=== PATIENT | male | born 1985 | race African-American/Black ===

== ENCOUNTER 2016-08-12 14:03 | Emergency (ER) | payer SELFPAY ==
[~2016-08-12] VITALS: Ht 177.8 cm; Wt 85.7 kg
[~2016-08-12 14:03] MED LIST: ALBUTEROL SULF8.5 GM INH; AZITHROMYCIN250 MG ORAL; IBUPROFEN800 MG ORAL; NKM; PROMETHAZINE-D118 ML ORAL; RANITIDINE HCL150 MG ORAL; ZOFRAN ODT4 MG ORAL
[2016-08-12 14:22] VITALS: BP 126/65
--- NOTE | 2016-08-12 14:34 | Emergency Room Report ---
History of Present Illness General Chief Complaint: Fever Source: Patient Present Illness HPI The patient is a 31-year-old male presenting for subjective fevers and left lower lip swelling. He states the symptoms have been on-and-off for the past 2 weeks. He states that he tried to pop the bump on the lower lip and noticed a white discharge with bleeding. He states pain is now a 10 out of 10 dull ache and does not radiate. He denies injury to this area in the past. He denies any other symptoms including nausea, vomiting, sore throat, cough, ear pain, neck pain, rash Allergies: Coded Allergies: No Known Allergies (Unverified , 07/04/12) Patient History Past Medical History: see triage record Pertinent Family History: none Reviewed Nursing Documentation: PMH: Agreed, PSxH: Agreed Nursing Documentation-PMH Past Medical History: No Stated History Review of Systems All Other Systems: negative except mentioned in HPI Physical Exam Vital Signs Date Time Temp Pulse Resp B/P Pulse Ox O2 Delivery O2 Flow Rate FiO2 08/12/16 14:11 98.1 90 16 126/65 99 Room Air Sp02 EP Interpretation: reviewed, normal General Appearance: no apparent distress, alert, GCS 15, non-toxic Head: normocephalic, atraumatic Eyes: bilateral eye PERRL, bilateral eye normal inspection ENT: hearing grossly normal, normal pharynx, no angioedema, normal voice, TMs + canals normal, uvula midline, other - L lower lip has 2cm tender erythematous nodule of the internal lip. Neurologic: alert, oriented x3, responsive, motor strength/tone normal, sensory intact, speech normal Psychiatric: judgement/insight normal, memory normal, mood/affect normal, no suicidal/homicidal ideation Skin: normal color, no rash, warm/dry, well hydrated Lymphatic: no adenopathy Medical Decision Making PA Attestation Dr. Fox is my supervising physician. Patient management was discussed with my supervising physician Diagnostic Impression: Primary Impression: Infection of lip ER Course The patient is a 31-year-old male presenting for subjective fevers and left lower lip swelling. Differential diagnoses considered but not limited to: abscess, cellulitis, impetigo, PE: vitals WNL. NAD L lower lip has 2cm tender erythematous nodule of the internal lip. indurated. no bleeding. Otherwise exam unremarkable The patient is given a prescription for clindamycin 300mg TIDx7 days and will followup with PMD. ER precautions given Chest X-Ray Diagnostic Results Chest X-Ray Ordered: No Last Vital Signs Date Time Temp Pulse Resp B/P Pulse Ox O2 Delivery O2 Flow Rate FiO2 08/12/16 14:22 98.1 16 126/65 99 Room Air 08/12/16 14:11 90 Status: improved Disposition: HOME, SELF-CARE Condition: Improved Scripts Clindamycin HCl (Clindamycin HCl) 300 Mg Capsule 150 MG ORAL TID, #21 CAP Prov: ARPIT MURGUIA 08/12/16 ARPIT MURGUIA Aug 12, 2016 14:34
[2016-08-12] MEDS ORDERED: CLEOCIN150 MG ORAL (14:36)
[2016-08-12 14:43] VITALS: BP 126/65
== END 2016-08-12 14:43 | disposition home or self-care (01) ==
LOC: EMR 14:32
DX: L08.89 Other specified local infections of the skin and subcutaneous tissue (principal); R22.9 Localized swelling, mass and lump, unspecified; R50.9 Fever, unspecified
CPT/HCPCS: 99283

== ENCOUNTER 2016-08-19 06:35 | Emergency (ER) | payer SELFPAY ==
[~2016-08-19] VITALS: Ht 177.8 cm; Wt 86.2 kg
[~2016-08-19 06:35] MED LIST changes: +CLEOCIN150 MG ORAL
[2016-08-19] MEDS ORDERED: Lidocaine 1% MPF 10mg/ml 5ml INJ ONE (07:15)
--- NOTE | 2016-08-19 07:49 | Emergency Room Report ---
History of Present Illness General Chief Complaint: General Complaint Source: Patient Present Illness HPI This patient states that he developed a bump on his lower lip about a week ago. He was seen here and put on antibiotics. He states that he didn't have improvement despite still being on antibiotics. He states that yesterday he ate some almonds and noted that the lip became significantly larger. He denies rash or itching. He denies difficulty breathing or any, or throat symptoms. He denies fever or chills. He has no other complaints. Allergies: Coded Allergies: No Known Allergies (Unverified , 07/04/12) Patient History Past Medical History: none Social History: Denies: alcohol use, drug use, smoking Reviewed Nursing Documentation: PMH: Agreed, PSxH: Agreed Nursing Documentation-PMH Past Medical History: No Stated History Review of Systems All Other Systems: negative except mentioned in HPI Physical Exam Vital Signs Date Time Temp Pulse Resp B/P Pulse Ox O2 Delivery O2 Flow Rate FiO2 08/19/16 06:40 97.5 69 16 129/87 99 Room Air Sp02 EP Interpretation: reviewed, normal General Appearance: no apparent distress, alert, GCS 15, non-toxic Head: normocephalic, atraumatic Eyes: bilateral eye PERRL, bilateral eye normal inspection ENT: hearing grossly normal, normal pharynx, no angioedema, normal voice, uvula midline, other - L. lower lip with swelling and a dime sized area of fluctuance within the lip. Localized to L. lower lip. Neck: full range of motion, supple/symm/no masses Respiratory: no respiratory distress, no retraction, no accessory muscle use, speaking full sentences Rectal: deferred Musculoskeletal: gait/station normal, normal range of motion Neurologic: alert, oriented x3, responsive, motor strength/tone normal, sensory intact, speech normal Psychiatric: judgement/insight normal, memory normal, mood/affect normal, no suicidal/homicidal ideation Skin: normal color, warm/dry, well hydrated, other - See HEENT Procedures Incision and Drainage Incision and Drainage : Consent: Verbal Site: L. Lower lip Blade Size: 11 I & D Procedure: betadine prep, gauze wick placed Wound Location: other - Left Lower lip nickel sized area Wound Length (cm): 2 - mm Patient Tolerated: Well Complications: None Progress I offered this patient anesthesia with a local lidocaine. However, the patient states he would just like me to make the incision without anesthesia. An 11 blade was used to puncture the area of maximal fluctuance and a large amount of purulent discharge was obtained. A quarter inch ribbon gauze was inserted into the wound. There were no complications. Medical Decision Making Diagnostic Impression: Primary Impression: Lip abscess ER Course This patient presents with a lower lip abscess. It only involves the lip. There is no extension into the facial tissue. I did do a simple incision and drainage with excellent return of purulent discharge. The wound was packed. The patient is on clindamycin I will go ahead and extended course of antibiotics. The patient was given close return precautions and followup instructions. There are no systemic symptoms. The patient tolerated the procedure without complication or incident. Last Vital Signs Date Time Temp Pulse Resp B/P Pulse Ox O2 Delivery O2 Flow Rate FiO2 08/19/16 06:40 97.5 69 16 129/87 99 Room Air Disposition: HOME, SELF-CARE Condition: Improved Referrals: NOT CHOSEN RENETTA/,REFERRING (PCP) OLGE ORTEGA D.O. Aug 19, 2016 07:49
[2016-08-19] MEDS ORDERED: CLINDAMYCIN HC300 MG ORAL (09:13)
[2016-08-19 09:21] VITALS: BP 130/89
== END 2016-08-19 09:24 | disposition home or self-care (01) ==
LOC: EMR 07:05
DX: K13.0 Diseases of lips (principal)
CPT/HCPCS: 10060

== ENCOUNTER 2016-08-19 14:46 | Emergency (ER) | payer SELFPAY ==
[~2016-08-19] VITALS: Ht 177.8 cm; Wt 86.2 kg
[~2016-08-19 14:46] MED LIST changes: +CLINDAMYCIN HC300 MG ORAL
--- NOTE | 2016-08-19 15:30 | Emergency Room Report ---
History of Present Illness General Chief Complaint: Wound Recheck/Suture Removal Source: Patient Present Illness HPI [id number] came back to ED after lip packing fell out after I&D and packing this morning of left lower lip abscess. Patient not sure how it came out, possibly after drinking water. Didnt fill Rx yet. Allergies: Coded Allergies: No Known Allergies (Unverified , 07/04/12) Patient History Past Medical History: none Past Surgical History: none Pertinent Family History: none Social History: Denies: alcohol use, drug use, smoking Immunizations: UTD Reviewed Nursing Documentation: PMH: Agreed, PSxH: Agreed Nursing Documentation-PMH Past Medical History: No Stated History Review of Systems All Other Systems: negative except mentioned in HPI Physical Exam Vital Signs Date Time Temp Pulse Resp B/P Pulse Ox O2 Delivery O2 Flow Rate FiO2 08/19/16 15:01 98.2 89 22 128/79 95 Room Air Sp02 EP Interpretation: reviewed, normal General Appearance: normal inspection, well appearing, no apparent distress, alert Head: normocephalic, atraumatic Eyes: bilateral eye EOMI, bilateral eye PERRL ENT: normal ENT inspection, hearing grossly normal, normal voice, other - Left lower lip-1cm incision seen. No packing seen. Neck: normal inspection, full range of motion, supple, no bony tend Respiratory: normal inspection, lungs clear, normal breath sounds, no respiratory distress, no retraction, no wheezing Gastrointestinal: normal inspection, normal bowel sounds, non tender, soft, no guarding, no hernia Genitourinary: no CVA tenderness Musculoskeletal: normal inspection, back normal, normal range of motion, Jocelynn' s Sign negative Neurologic: normal inspection, alert, oriented x3, responsive, speech normal Psychiatric: normal inspection, judgement/insight normal, mood/affect normal Skin: normal inspection, normal color, no rash Procedures Incision and Drainage Incision and Drainage : Consent: Verbal I & D Procedure: betadine prep Wound Location: face Wound's Depth, Shape: superficial Wound Explored: clean Splint Applied?: No Sling Applied?: No Patient Tolerated: Well Complications: None Progress 3cm packing replaced into I&D wound to lower left lip Medical Decision Making Diagnostic Impression: Primary Impression: Encounter for wound re-check ER Course packing replaced Encouraged patient to fill Rx for Abx Keep packing in as long as possible, preferably 2+ days Remove himself or return to ED for removal Last Vital Signs Date Time Temp Pulse Resp B/P Pulse Ox O2 Delivery O2 Flow Rate FiO2 08/19/16 15:01 98.2 89 22 128/79 95 Room Air Status: improved Disposition: HOME, SELF-CARE Condition: Improved Patient Instructions: Wound Check Additional Instructions: - Keep packing in as long as possible - Take ALL the antibiotics BRADEN STOCKTON M.D. Aug 19, 2016 15:30
[2016-08-19 15:31] VITALS: BP 128/79
== END 2016-08-19 16:00 | disposition home or self-care (01) ==
LOC: EMR 15:48
DX: L02.01 Cutaneous abscess of face (principal); Z48.01 Encounter for change or removal of surgical wound dressing
CPT/HCPCS: 10060

== ENCOUNTER 2016-11-26 14:06 | Emergency (ER) | payer SELFPAY ==
[~2016-11-26] VITALS: Ht 180.3 cm; Wt 83.9 kg
--- NOTE | 2016-11-26 14:49 | Emergency Room Report ---
History of Present Illness General Chief Complaint: General Complaint Source: Patient (Tegan Lee) Present Illness HPI Patient is a 31-year-old male with no significant past medical history who presents with complaint of lip swelling that began yesterday. He states he's had this in the past and they "cut into it" and it resolved. He denies any pain , fever, chills or associated symptoms. (Tegan Lee) Allergies: Coded Allergies: No Known Allergies (Unverified , 07/04/12) Patient History Reviewed Nursing Documentation: PMH: Agreed, PSxH: Agreed (Tegan Lee) Nursing Documentation-PMH Past Medical History: No Stated History (Tegan Lee) Review of Systems ENT: Reports: other - lip swelling All Other Systems: negative except mentioned in HPI (Tegan Lee) Physical Exam Vital Signs Date Time Temp Pulse Resp B/P (MAP) Pulse Ox O2 Delivery O2 Flow Rate FiO2 11/26/16 14:30 98.2 84 16 137/74 98 Room Air Sp02 EP Interpretation: reviewed, normal General Appearance: no apparent distress, alert, GCS 15, non-toxic Head: normocephalic, atraumatic Eyes: bilateral eye normal inspection, bilateral eye PERRL ENT: hearing grossly normal, normal pharynx, no angioedema, normal voice, other - 1cm non tender fluid filled mass in the lower lip, no evidence of infection Neck: full range of motion, supple/symm/no masses Respiratory: chest non-tender, lungs clear, normal breath sounds, speaking full sentences Cardiovascular #1: regular rate, rhythm, no edema Cardiovascular #2: 2+ carotid (R), 2+ carotid (L), 2+ radial (R), 2+ radial (L) , 2+ dorsalis pedis (R), 2+ dorsalis pedis (L) Gastrointestinal: normal bowel sounds, non tender, soft, non-distended, no guarding, no rebound Rectal: deferred Genitourinary: normal inspection, no CVA tenderness Musculoskeletal: back normal, gait/station normal, normal range of motion, non- tender, calf tenderness Neurologic: alert, oriented x3, responsive, motor strength/tone normal, sensory intact, speech normal Psychiatric: judgement/insight normal, memory normal, mood/affect normal, no suicidal/homicidal ideation Reflexes: 3+ bicep (R), 3+ bicep (L), 3+ tricep (R), 3+ tricep (L), 3+ knee (R) , 3+ knee (L) Skin: normal color, no rash, warm/dry, well hydrated Lymphatic: no adenopathy (Tegan Lee P.A.) Procedures Incision and Drainage Incision and Drainage : Consent: Verbal Blade Size: 18 gague needle aspiration Wound Explored: clean Patient Tolerated: Well Complications: None (Tegan Lee P.A.) Medical Decision Making PA Attestation supervising physician is (Tegan Lee P.Vince) Diagnostic Impression: Primary Impression: Lip cyst ER Course And I have a fluid collection in his lower lip consistent with a cyst. No evidence of infection and no tenderness to palpation. Aspirated with an 18- gauge needle, patient tolerated procedure well. Patient is instructed to follow up with PCP for referral to [facility] for surgical removal of the cyst. Explained the patient at length and they fluid collections lower lip is not an abscess and there is no indication for incision and drainage at this time. Patient understands and is agreeable with plan. (Tegan Lee P.A.) Last Vital Signs Date Time Temp Pulse Resp B/P (MAP) Pulse Ox O2 Delivery O2 Flow Rate FiO2 11/26/16 14:30 98.2 84 16 137/74 98 Room Air Status: improved (Tegan Lee P.A.) Last Vital Signs Date Time Temp Pulse Resp B/P (MAP) Pulse Ox O2 Delivery O2 Flow Rate FiO2 11/26/16 15:30 98.2 84 16 132/70 98 Room Air Status: unchanged (Alexandr Neville M.D.) Disposition: HOME, SELF-CARE Condition: Stable Tegan Lee.Vince Nov 26, 2016 14:49 Alexandr Neville M.D. Nov 27, 2016 03:40
[2016-11-26 15:30] VITALS: BP 132/70
== END 2016-11-26 15:51 | disposition home or self-care (01) ==
LOC: EMR 15:02
DX: K13.0 Diseases of lips (principal)
CPT/HCPCS: 10060; 99283

== ENCOUNTER 2017-11-21 16:59 | Emergency (ER) | payer OTHER ==
[~2017-11-21] VITALS: Ht 175.3 cm; Wt 88.5 kg
[2017-11-21 17:39] VITALS: BP 155/95
--- NOTE | 2017-11-21 17:41 | Emergency Room Report ---
History of Present Illness General Chief Complaint: Abdominal Pain Source: Patient Present Illness HPI 32-year-old male presents to the emergency department complaining of intermittent 5 out of 10 in severity epigastric abdominal pain 4 months. Patient also reports during episodes he feels as though his abdomen is bloated. Patient denies pain at this time he does not recall any specific triggers for her symptoms. Patient does report he eats spicy foods as well as moderate amount of caffeine. Patient denies radiation of the pain up into the throat. Patient denies symptoms being worse at night denies fevers, chills, nausea, vomiting, recent travel or ill contacts with similar symptoms. Patient denies black tarry stools, blood in the stool or vomiting any blood. Patient reports frequency is approximately 3 times per week. Denies constipation, diarrhea, dysuria, or urinary frequency. Allergies: Coded Allergies: No Known Allergies (Unverified , 07/04/12) Patient History Past Medical History: see triage record Past Surgical History: none Pertinent Family History: none Reviewed Nursing Documentation: PMH: Agreed; PSxH: Agreed Nursing Documentation-PMH Past Medical History: No Stated History Review of Systems All Other Systems: negative except mentioned in HPI Physical Exam Vital Signs Date Time Temp Pulse Resp B/P (MAP) Pulse Ox O2 Delivery O2 Flow Rate FiO2 11/21/17 17:10 98.1 78 20 155/95 98 Room Air 98.1 Sp02 EP Interpretation: reviewed, normal General Appearance: no apparent distress, alert, GCS 15, non-toxic Head: normocephalic, atraumatic ENT: hearing grossly normal, normal voice Neck: full range of motion Respiratory: chest non-tender, lungs clear, normal breath sounds, speaking full sentences Cardiovascular #1: regular rate, rhythm Gastrointestinal: normal bowel sounds, non tender, soft, non-distended, no guarding Genitourinary: normal inspection, no CVA tenderness Musculoskeletal: back normal, gait/station normal, normal range of motion, non- tender Neurologic: alert, oriented x3, responsive, motor strength/tone normal, sensory intact, normal gait, speech normal, grossly normal Psychiatric: judgement/insight normal Skin: normal color, no rash, warm/dry, well hydrated Medical Decision Making PA Attestation Dr. Arrington is my supervising Physician whom patient management has been discussed with. Diagnostic Impression: Primary Impression: Gastritis Qualified Codes: K29.00 - Acute gastritis without bleeding ER Course 32-year-old male presents to the emergency department complaining of intermittent 5 out of 10 in severity epigastric abdominal pain 4 months. Patient also reports during episodes he feels as though his abdomen is bloated. Patient denies pain at this time he does not recall any specific triggers for her symptoms. Patient does report he eats spicy foods as well as moderate amount of caffeine. Patient denies radiation of the pain up into the throat. Patient denies symptoms being worse at night denies fevers, chills, nausea, vomiting, recent travel or ill contacts with similar symptoms. Patient denies black tarry stools, blood in the stool or vomiting any blood. Patient reports frequency is approximately 3 times per week. Denies constipation, diarrhea, dysuria, or urinary frequency. Ddx considered but are not limited to GE, colitis, acute appy, SBO, H.pylori, Gastritis, PNA, pericarditis just to name a few. Vital signs: pt. is afebrile H&PE are most consistent with Gastritis - no evidence to suggest acute abdomen on physical exam. ORDERS: -None required at this time, the dx is clinical. ED INTERVENTIONS: -none required at this time. -I do not identify an emergent condition at this time. With current presentation , pt. is stable for close outpatient follow up and conservative treatment. D/ w pt. to return promptly to ED with worsening or new symptoms.- Pt. verbalizes' understanding and agreement with proposed treatment plan.proposed treatment plan. DISCHARGE: At this time pt. is stable for d/c to home. Will provide printed patient care instructions, and any necessary prescriptions. Care plan and follow up instructions have been discussed with the patient prior to discharge. Last Vital Signs Date Time Temp Pulse Resp B/P (MAP) Pulse Ox O2 Delivery O2 Flow Rate FiO2 11/21/17 17:10 98.1 78 20 155/95 98 Room Air 98.1 Disposition: HOME, SELF-CARE Condition: Stable Scripts Lidocaine HCl 2% Viscous (Lidocaine HCl 2% Viscous) 100 Ml Solution 5 ML ORAL QID, #100 ML Prov: Rosa Benson 11/21/17 Ranitidine Hcl* (ZANTAC*) 150 Mg Tablet 150 MG ORAL TWICE A DAY, #30 TAB Prov: Rosa Benson 11/21/17 Patient Instructions: Food Choices for Peptic Ulcer Disease, Gastritis, Adult Additional Instructions: Take medications as directed. Follow up with a Primary Care Provider in 3-5 days, even if your symptoms have resolved. Return sooner to ED if new symptoms occur, or current symptoms become worse. - Please note that this Emergency Department Report was dictated using [employer] planning consultant technology software, occasionally this can lead to erroneous entry secondary to interpretation by the dictation equipment. Rosa Benson Nov 21, 2017 17:41
[2017-11-21] MEDS ORDERED: ZANTAC150 MG ORAL (17:43)
[2017-11-21] MEDS ORDERED: LIDOCAINE VISC100 ML ORAL (17:43)
== END 2017-11-21 19:00 | disposition home or self-care (01) ==
LOC: EMR 17:50
DX: K29.70 Gastritis, unspecified, without bleeding (principal)
CPT/HCPCS: 99283

== ENCOUNTER 2018-01-24 11:26 | Emergency (ER) | payer OTHER ==
[~2018-01-24] VITALS: Ht 177.8 cm; Wt 95.3 kg
[~2018-01-24 11:26] MED LIST changes: +LIDOCAINE VISC100 ML ORAL; +ZANTAC150 MG ORAL
[2018-01-24] MEDS ORDERED: NKM (11:34)
[2018-01-24 11:40] VITALS: BP 138/89
[2018-01-24] MEDS ORDERED: Lidocaine 2% Visc 15ml soln ORAL ONE (12:30)
[2018-01-24] MEDS ORDERED: Benzonatate 100mg Perles ORAL ONE (12:30)
[2018-01-24] MEDS ORDERED: SUDAFED PE PRE1 EACH PO (12:38)
[2018-01-24] MEDS ORDERED: FLUTICASONE PRO16 G1 NASAL (12:38)
[2018-01-24] MEDS ORDERED: CLARITIN10 M2 ORAL (12:38)
[2018-01-24] MEDS ORDERED: TESSALON PERLE100 MG ORAL (12:38)
--- NOTE | 2018-01-24 12:38 | Emergency Room Report ---
History of Present Illness General Chief Complaint: Flu Like Symptoms Source: Patient Present Illness HPI 32-year-old male patient presents ER complaining of cough and nasal congestion for the past week. Reports sore throat during this time. Denies chest pain, shortness of breath. Denies fever. Reports has been taking NyQuil and DayQuil for relief of symptoms. Denies history of asthma, heart disease, [place]. Reports history of bronchitis, denies breathing difficulties, denies cough worse at night.. denies vomiting. Denies abdominal pain. Denies neck pain. Denies recent travel. Allergies: Coded Allergies: No Known Allergies (Unverified , 01/24/18) Patient History Past Medical History: see triage record Reviewed Nursing Documentation: PMH: Agreed; PSxH: Agreed Nursing Documentation-PMH Past Medical History: No Stated History Review of Systems All Other Systems: negative except mentioned in HPI Physical Exam Vital Signs Date Time Temp Pulse Resp B/P (MAP) Pulse Ox O2 Delivery O2 Flow Rate FiO2 01/24/18 11:29 98.4 84 18 138/89 97 Room Air Sp02 EP Interpretation: reviewed, normal General Appearance: well appearing, no apparent distress, alert, GCS 15, non- toxic Head: normocephalic, atraumatic Eyes: bilateral eye normal inspection, bilateral eye PERRL ENT: hearing grossly normal, normal pharynx, no angioedema, normal voice, TMs + canals normal, uvula midline, moist mucus membranes, pharyngeal erythema Neck: full range of motion, no meningismus Respiratory: lungs clear, normal breath sounds, no rhonchi, no respiratory distress, no accessory muscle use, no wheezing, speaking full sentences Cardiovascular #1: regular rate, rhythm, no edema Gastrointestinal: non tender, soft, no mass, non-distended, no guarding, no rebound Musculoskeletal: back normal, digits/nails normal, gait/station normal, normal range of motion, non-tender Neurologic: alert, oriented x3, responsive, motor strength/tone normal, sensory intact Psychiatric: mood/affect normal Skin: no rash Lymphatic: no adenopathy Medical Decision Making PA Attestation Dr. Lawrence is my supervising Physician whom patient management has been discussed with. Diagnostic Impression: Primary Impression: Upper respiratory infection ER Course Pt presents to ED c/o cough and congestion. DDX considered but are not limited to influenza, viral URI, pneumonia, strep throat, rhinitis, sinusitis, otitis media, otitis externa. VITAL SIGNS are WNL, patient is afebrile. ER COURSE: Provided with cough medication in the ER. Lungs clear to auscultation, no wheezes, rhonci or rales. patient afebrile. Low suspicion for pneumonia, will not order CXR at this time. no tonsillar exudates, history of cough, no fever, no stridor, uvula midline, low suspicion for peritonsillar abscess. Likely viral etiology of symptoms. no signs of bacterial infection, does not require abx at this time. Symptomatic treatment. drink plenty of fluids. Salt water gargles for sore throat. Followup with PCP for further treatment and/or referral as needed. DISCHARGE: At this time pt is stable for d/c to home. Patient is resting comfortably, in no acute distress, nontoxic appearing. Patient to take medications as instructed Will provide with patient care instructions and any necessary prescriptions. Care plan and follow-up instructions provided. Patient instructed to follow-up with primary care provider in 3 - 5 days. Patient questions asked and answered. Patient reports understanding and agreement to treatment plan. ER precautions given. Patient instructed to return to ER immediately for any new or worsening of symptoms including but not limited to increasing SOB, persistent fever, intractable vomiting. - Please note that this Emergency Department Report was dictated using [employer] systems security developer technology software, occasionally this can lead to erroneous entry secondary to interpretation by the dictation equipment. Last Vital Signs Date Time Temp Pulse Resp B/P (MAP) Pulse Ox O2 Delivery O2 Flow Rate FiO2 01/24/18 11:40 98.4 18 138/89 97 Room Air 01/24/18 11:40 84 Disposition: HOME, SELF-CARE Condition: Stable Scripts Loratadine (CLARITIN) 10 Mg Capsule 10 MG ORAL DAILY, #30 CAP Prov: Darian Diaz.ALa 01/24/18 Fluticasone Propionate* (FLUTICASONE PROPIONATE*) 16 Gm [place].susp 1 SPRAY NASAL TWICE A DAY, #16 GM Prov: Darian Diaz.ALa 01/24/18 D-Methorphan/PE/Acetaminophen (Sudafed PE Pressure+Pain+Cough) 1 Each Tablet 1 EACH PO BID, #24 TAB Prov: Darian Diaz.A. 01/24/18 Benzonatate* (TESSALON SVETLANA*) 100 Mg Capsule 100 MG ORAL THREE TIMES A DAY, #20 PERLE Prov: Darian Diaz 01/24/18 Patient Instructions: Upper Respiratory Infection, Adult, [id number] Additional Instructions: Followup with primary care provider in 3 -5 days. Take medications as directed. Patient questions asked and answered. ER precautions given, patient instructed to return to ER immediately for any new or worsening of symptoms. Darian Diaz Jan 24, 2018 12:38
[2018-01-24 12:53] VITALS: BP 147/65
== END 2018-01-24 12:54 | disposition home or self-care (01) ==
LOC: EMR 12:38
DX: J06.9 Acute upper respiratory infection, unspecified (principal)
CPT/HCPCS: 99282

== ENCOUNTER 2018-02-21 16:33 | Emergency (ER) | payer OTHER ==
[~2018-02-21] VITALS: Ht 175.3 cm; Wt 90.7 kg
[~2018-02-21 16:33] MED LIST changes: +CLARITIN10 M2 ORAL; +FLUTICASONE PRO16 G1 NASAL; +SUDAFED PE PRE1 EACH PO; +TESSALON PERLE100 MG ORAL
[2018-02-21 16:45] VITALS: BP 132/87
[2018-02-21] MEDS ORDERED: Phenazopyridine 200mg tab ORAL ONE (16:45)
[2018-02-21 17:13] LABS: APPEARANCE,URINE CLEAR; BILIRUBIN, URINE NEGATIVE (NEGATIVE); COLOR,URINE PALE YELLOW; GLUCOSE, URINE (UA) NEGATIVE (NEGATIVE); KETONES,URINE NEGATIVE (NEGATIVE); LEUKOCYTE ESTERASE ,URINE 3+ (NEGATIVE); NITRITE,URINE NEGATIVE (NEGATIVE); PH,URINE 8 (4.5-8.0); PROTEIN,URINE NEGATIVE (NEGATIVE); UROBILINOGEN,URINE NORMAL MG/DL (0.0-1.0)
[2018-02-21] MEDS ORDERED: CEPHALEXIN500 MG ORAL (17:53)
[2018-02-21] MEDS ORDERED: PHENAZOPYRIDIN200 MG ORAL (17:53)
--- NOTE | 2018-02-21 17:53 | Emergency Room Report ---
History of Present Illness General Chief Complaint: Male Urogenital Problems Source: Patient Present Illness HPI 32-year-old male presents to the emergency department complaining of 7 out of 10 in severity dysuria times 3 days. Patient denies hematuria, urinary frequency, urgency, abdominal pain or tenderness. Patient denies penile discharge, rash, genital lesions/swollen tender lymph nodes or testicular pain/ swelling. Patient denies recent unprotected intercourse denies history of immune compromise or diabetes. Reports pain only with urination he denies any aggravating or relieving factors otherwise. Pt. denies suspicion if STD. Allergies: Coded Allergies: No Known Allergies (Unverified , 01/24/18) Patient History Past Medical History: see triage record Past Surgical History: none Pertinent Family History: none Reviewed Nursing Documentation: PMH: Agreed; PSxH: Agreed Nursing Documentation-PMH Past Medical History: No Stated History Review of Systems All Other Systems: negative except mentioned in HPI Physical Exam Vital Signs Date Time Temp Pulse Resp B/P (MAP) Pulse Ox O2 Delivery O2 Flow Rate FiO2 02/21/18 16:38 98.4 87 20 135/86 96 Room Air Medical Decision Making PA Attestation Dr. Arrington is my supervising Physician whom patient management has been discussed with. Diagnostic Impression: Primary Impression: UTI (urinary tract infection) Qualified Codes: N30.00 - Acute cystitis without hematuria ER Course 32-year-old male presents to the emergency department complaining of 7 out of 10 in severity dysuria times 3 days. Patient denies hematuria, urinary frequency, urgency, abdominal pain or tenderness. Patient denies penile discharge, rash, genital lesions/swollen tender lymph nodes or testicular pain/ swelling. Patient denies recent unprotected intercourse denies history of immune compromise or diabetes. Reports pain only with urination he denies any aggravating or relieving factors otherwise. Pt. denies suspicion if STD. Ddx considered but are not limited to UTi , Pyelo, STI, Stone, Cystitis, Urethritis/STD Vital signs: are WNL, pt. is afebrile H&PE are most consistent with UTI ORDERS: - UA labs are attached - Some bacteria with leukocytes pt will be treated due to being symptomatic. ED INTERVENTIONS: -Pyridium DISCHARGE: At this time pt. is stable for d/c to home. Will provide printed patient care instructions, and any necessary prescriptions. Care plan and follow up instructions have been discussed with the patient prior to discharge. Labs Test 02/21/18 16:40 Urine Color Pale yellow Urine Appearance Clear Urine pH 8 (4.5-8.0) Urine Specific [place] 1.010 (1.005-1.035) Urine Protein Negative (NEGATIVE) Urine Glucose (UA) Negative (NEGATIVE) Urine Ketones Negative (NEGATIVE) Urine Blood Negative (NEGATIVE) Urine Nitrite Negative (NEGATIVE) Urine Bilirubin Negative (NEGATIVE) Urine Urobilinogen Normal MG/DL (0.0-1.0) Urine Leukocyte Esterase 3+ (NEGATIVE) Urine RBC 0-2 /HPF (0 - 0) Urine WBC 2-4 /HPF (0 - 0) Urine Squamous Epithelial Cells None /LPF (NONE/OCC) Urine Bacteria Few /HPF (NONE) Last Vital Signs Date Time Temp Pulse Resp B/P (MAP) Pulse Ox O2 Delivery O2 Flow Rate FiO2 02/21/18 16:45 98.6 84 18 132/87 98 Room Air Disposition: HOME, SELF-CARE Condition: Stable Scripts Phenazopyridine Hcl* (PYRIDIUM*) 200 Mg Tablet 200 MG ORAL THREE TIMES A DAY for 3 Days, #9 TAB 0 Refills Prov: Rosa Benson 02/21/18 Cephalexin* (KEFLEX*) 500 Mg Capsule 500 MG ORAL EVERY 12 HOURS for 7 Days, #14 CAP 0 Refills Prov: Rosa Benson 02/21/18 Referrals: [facility]REFERR[facility] (PCP) Patient Instructions: Urinary Tract Infection, [id number] Additional Instructions: Take medications as directed. Follow up with a Primary Care Provider in 3-5 days, even if your symptoms have resolved. --Please review list of primary care clinics, if you do not already have a primary care provider Return sooner to ED if new symptoms occur, or current symptoms become worse. Do not drink alcohol, drive, or operate heavy machinery while taking robaxin as this may cause drowsiness. - Please note that this Emergency Department Report was dictated using [employer] and safety director technology software, occasionally this can lead to erroneous entry secondary to interpretation by the dictation equipment. Rosa Benson Feb 21, 2018 17:53
[2018-02-21 17:58] VITALS: BP 128/86
== END 2018-02-21 18:00 | disposition home or self-care (01) ==
LOC: EMR 17:40
DX: N39.0 Urinary tract infection, site not specified (principal)
CPT/HCPCS: 81003; 99283

== ENCOUNTER 2018-04-24 08:27 | Emergency (ER) | payer OTHER ==
[~2018-04-24] VITALS: Ht 177.8 cm; Wt 90.7 kg
[~2018-04-24 08:27] MED LIST changes: +CEPHALEXIN500 MG ORAL; +PHENAZOPYRIDIN200 MG ORAL
[2018-04-24] MEDS ORDERED: NKM (08:34)
[2018-04-24 08:38] VITALS: BP 126/80
--- NOTE | 2018-04-24 08:38 | NUR ---
ED Nurse Note: Pt c/o lower back pain for 2 weeks. Denies trauma to his back.
[2018-04-24] MEDS ORDERED: IBUPROFEN600 MG ORAL (08:47)
--- NOTE | 2018-04-24 08:52 | Emergency Room Report ---
History of Present Illness General Chief Complaint: Back Pain-No Injury Source: Patient Present Illness HPI Patient presents with complaints of lower back pain Reports that off-and-on for the past 2 weeks Denies any chest pain or shortness of breath denies any vomiting or diarrhea denies any fevers or chills Denies any focal weakness however does feel that some of the pain goes into the right buttock and upper thigh area at times Denies any obvious trauma however the patient reports that he does work out Does different workout such as carrying things over his back Denies any other saddle paresthesia or constipation Allergies: Coded Allergies: No Known Allergies (Unverified , 04/24/18) Patient History Past Medical History: see triage record Pertinent Family History: none Reviewed Nursing Documentation: PMH: Agreed; PSxH: Agreed Nursing Documentation-PMH Past Medical History: No Stated History Review of Systems All Other Systems: negative except mentioned in HPI Physical Exam Vital Signs Date Time Temp Pulse Resp B/P (MAP) Pulse Ox O2 Delivery O2 Flow Rate FiO2 04/24/18 08:30 97.5 67 16 125/78 98 Room Air Sp02 EP Interpretation: reviewed, normal General Appearance: well appearing, no apparent distress Head: normocephalic, atraumatic Eyes: bilateral eye PERRL, bilateral eye EOMI ENT: hearing grossly normal, normal pharynx, TMs + canals normal, uvula midline Neck: full range of motion, supple, no meningismus, no bony tend Respiratory: lungs clear, normal breath sounds, no rhonchi, no respiratory distress, no retraction, no accessory muscle use Cardiovascular #1: normal peripheral pulses, regular rate, rhythm, no edema, no gallop, no JVD, no murmur Gastrointestinal: normal bowel sounds, non tender, soft, no mass, no organomegaly, non-distended, no guarding, no hernia, no pulsatile mass, no rebound Genitourinary: no CVA tenderness Musculoskeletal: other - Fairly normal exam patient does have some reproduction of discomfort over the right posterior superior iliac crest region otherwise midline does not show any step-offs sensory is intact Neurologic: oriented x3, responsive, web operations lead III-XII nml as tested, motor strength/ tone normal, sensory intact Psychiatric: mood/affect normal Skin: normal color, no rash, warm/dry, palpation normal Lymphatic: normal inspection, no adenopathy Medical Decision Making Diagnostic Impression: Primary Impression: Back pain ER Course Multiple differentials in consideration including but not limited to neurological neurosurgical, muscle skeletal, Patient has a benign medical evaluation He reports that he had fairly extensive blood work done by his primary physician Dr. Hardy just about a month ago and feels that they were all normal however he has not discussed these findings with his physician Given the lack of any end organ findings or any other emergent indications patient is recommended to follow up closely with his primary physician and will have attempt for initial conservative follow-up Last Vital Signs Date Time Temp Pulse Resp B/P (MAP) Pulse Ox O2 Delivery O2 Flow Rate FiO2 04/24/18 08:38 97.5 68 17 126/80 99 Room Air Status: unchanged Disposition: HOME, SELF-CARE Condition: Stable Scripts Ibuprofen* (MOTRIN*) 600 Mg Tablet 600 MG ORAL Q8H PRN for For Pain, #20 TAB 0 Refills Prov: Shanelle Lawrence DO 04/24/18 Referrals: Christian Hardy MD (PCP) Patient Instructions: Sciatica, Back Pain, Adult Additional Instructions: Patient is provided with the discharge instructions notified to follow up with primary doctor in the next 2-3 days otherwise return to the er with any worsening symptoms. Please note that this report is being documented using [employer] technology. This can lead to erroneous entry secondary to incorrect interpretation by the dictating instrument. Shanelle Lawrence DO Apr 24, 2018 08:52
[2018-04-24 09:06] VITALS: BP 130/75
--- NOTE | 2018-04-24 09:06 | NUR ---
ED Nurse Note: Pt cleared by Health Care Provider for discharge. DC instructions/prescription was given and explained to the pt and verbalized understanding of teachings. All medical devices such as ID band removed. Pt is AAO x4, ambulatory and left with all personal belongings.
== END 2018-04-24 09:06 | disposition home or self-care (01) ==
LOC: EMR 08:45
DX: M54.5 Low back pain (principal)
CPT/HCPCS: 99282

== ENCOUNTER 2018-05-08 10:07 | Emergency (ER) | payer OTHER ==
[~2018-05-08] VITALS: Ht 180.3 cm; Wt 95.3 kg
[~2018-05-08 10:07] MED LIST changes: +IBUPROFEN600 MG ORAL
[2018-05-08 10:26] VITALS: BP 157/93
--- NOTE | 2018-05-08 10:28 | NUR ---
ED Nurse Note: patient walked in by him self from home with steady gait, complaining of chest pain 8/, AAO x 4, skin is dry, intact, warm to touch. VSS at this time. patient was connected to the monitor, will continue to monitor.
--- NOTE | 2018-05-08 10:38 | Emergency Room Report ---
History of Present Illness General Chief Complaint: Pain Source: Patient Present Illness HPI Patient present with complaints of midsternal chest pain Also left axillary Reports that off-and-on for the past 7 days he has felt the discomfort more frequently denies any vomiting There is a component of shortness of breath that he reports as well however nonspecifically correlated with this Patient reports that he was reading online was concern about possible blood clot Denies any pleurisy denies any fevers or chills denies any cough Allergies: Coded Allergies: No Known Allergies (Unverified , 04/24/18) Patient History Past Medical History: see triage record Pertinent Family History: none Reviewed Nursing Documentation: PMH: Agreed; PSxH: Agreed Review of Systems All Other Systems: negative except mentioned in HPI Physical Exam Vital Signs Date Time Temp Pulse Resp B/P (MAP) Pulse Ox O2 Delivery O2 Flow Rate FiO2 05/08/18 10:09 97.9 69 18 133/99 98 Room Air Sp02 EP Interpretation: reviewed, normal General Appearance: well appearing, no apparent distress Head: normocephalic, atraumatic Eyes: bilateral eye PERRL, bilateral eye EOMI ENT: hearing grossly normal, normal pharynx, TMs + canals normal, uvula midline Neck: full range of motion, supple, no meningismus, no bony tend Respiratory: lungs clear, normal breath sounds, no rhonchi, no respiratory distress, no retraction, no accessory muscle use Cardiovascular #1: normal peripheral pulses, regular rate, rhythm, no edema, no gallop, no JVD, no murmur Gastrointestinal: normal bowel sounds, non tender, soft, no mass, no organomegaly, non-distended, no guarding, no hernia, no pulsatile mass, no rebound Genitourinary: no CVA tenderness Musculoskeletal: normal inspection Neurologic: oriented x3, responsive, bed spring maker III-XII nml as tested, motor strength/ tone normal, sensory intact Psychiatric: mood/affect normal Skin: normal color, no rash, warm/dry, palpation normal Lymphatic: normal inspection, no adenopathy Medical Decision Making Diagnostic Impression: Primary Impression: Chest pain ER Course Patient is a fairly complex patient with multiple differential to consideration including but not limited to cardiac cardiopulmonary and vascular emergencies Patient's EKG shows earlier prostration no other acute pathology Blood work also does not show any other acute pathology Patient's chest x-ray was negative remains hemodynamically stable on cardiac monitoring I spoke to the patient's primary physician and patient is requested for close follow-up Labs Test 05/08/18 10:45 White Blood Count 3.6 K/UL (4.8-10.8) Red Blood Count 6.69 M/UL (4.70-6.10) Hemoglobin 17.4 G/DL (14.2-18.0) Hematocrit 52.6 % (42.0-52.0) Mean Corpuscular Volume 79 FL (80-99) Mean Corpuscular Hemoglobin 26.0 PG (27.0-31.0) Mean Corpuscular Hemoglobin Concent 33.0 G/DL (32.0-36.0) Red Cell Distribution Width 11.8 % (11.6-14.8) Platelet Count 251 K/UL (150-450) Mean Platelet Volume 9.3 FL (6.5-10.1) Neutrophils (%) (Auto) 53.3 % (45.0-75.0) Lymphocytes (%) (Auto) 34.9 % (20.0-45.0) Monocytes (%) (Auto) 9.8 % (1.0-10.0) Eosinophils (%) (Auto) 0.6 % (0.0-3.0) Basophils (%) (Auto) 1.4 % (0.0-2.0) Sodium Level 139 MMOL/L (136-145) Potassium Level 4.1 MMOL/L (3.5-5.1) Chloride Level 104 MMOL/L (98-107) Carbon Dioxide Level 27 MMOL/L (21-32) Anion Gap 8 mmol/L (5-15) Blood Urea Nitrogen 14 mg/dL (7-18) Creatinine 1.3 MG/DL (0.55-1.30) Estimat Glomerular Filtration Rate > 60 mL/min (>60) Glucose Level 90 MG/DL (74-106) Calcium Level 9.4 MG/DL (8.5-10.1) Total Bilirubin 0.6 MG/DL (0.2-1.0) Aspartate Amino Transf (AST/SGOT) 23 U/L (15-37) Alanine Aminotransferase (ALT/SGPT) 34 U/L (12-78) Alkaline Phosphatase 74 U/L (46-116) Total Creatine Kinase 176 U/L (26-308) Creatine Kinase MB 1.1 NG/ML (0.0-3.6) Creatine Kinase MB Relative Index 0.6 Troponin I 0.000 ng/mL (0.000-0.056) Pro-B-Type Natriuretic Peptide 21 pg/mL (0-125) Total Protein 7.7 G/DL (6.4-8.2) Albumin 4.2 G/DL (3.4-5.0) Globulin 3.5 g/dL Albumin/Globulin Ratio 1.2 (1.0-2.7) EKG Diagnostic Results Rate: normal Rhythm: NSR ST Segments: no acute changes - Early Repolarization Rhythm Strip Diag. Results EP Interpretation: yes Rate: 60 Rhythm: NSR, no PVC's, no ectopy Chest X-Ray Diagnostic Results Chest X-Ray Diagnostic Results : Chest X-Ray Ordered: Yes # of Views/Limited/Complete: 1 View Indication: Chest Pain EP Interpretation: Yes Interpretation: no consolidation, no effusion, no pneumothorax Impression: No acute disease Electronically Signed by: Shanelle Lawrence DO Last Vital Signs Date Time Temp Pulse Resp B/P (MAP) Pulse Ox O2 Delivery O2 Flow Rate FiO2 05/08/18 10:26 98.0 70 11 157/93 99 Room Air Status: improved Disposition: HOME, SELF-CARE Condition: Improved Referrals: [facility],REFERRING (PCP) Additional Instructions: Patient is provided with the discharge instructions notified to follow up with primary doctor in the next 2-3 days otherwise return to the er with any worsening symptoms. Please note that this report is being documented using [employer] technology. This can lead to erroneous entry secondary to incorrect interpretation by the dictating instrument. Shanelle Lawrence DO May 08, 2018 10:38
[2018-05-08 11:14] VITALS: BP 157/93
[2018-05-08 11:20] LABS: BASOPHILS % (AUTO) 1.4 % (0.0-2.0); EOSINOPHILS % (AUTO) 0.6 % (0.0-3.0); HEMATOCRIT 52.6 % (42.0-52.0); HEMOGLOBIN 17.4 G/DL (14.2-18.0); LYMPHOCYTES % (AUTO) 34.9 % (20.0-45.0); MEAN CORPUSCULAR VOLUME 79 FL (80-99); MONOCYTES % (AUTO) 9.8 % (1.0-10.0); NEUTROPHILS % (AUTO) 53.3 % (45.0-75.0); PLATELET COUNT 251 K/UL (150-450); RED BLOOD COUNT 6.69 M/UL (4.70-6.10); RED CELL DISTRIBUTION WIDTH 11.8 % (11.6-14.8); WHITE BLOOD COUNT 3.6 K/UL (4.8-10.8)
--- NOTE | 2018-05-08 11:21 | Diagnostic Imaging Report ---
Indication: Chest pain Technique: One view of the chest Comparison: none Findings: Lungs and pleural spaces are clear. Heart size is normal Impression: No acute process
[2018-05-08 11:27] LABS: ANION GAP 8 mmol/L (5-15); BLOOD UREA NITROGEN 14 mg/dL (7-18); CALCIUM 9.4 MG/DL (8.5-10.1); CARBON DIOXIDE 27 MMOL/L (21-32); CHLORIDE 104 MMOL/L (98-107); CREATININE 1.3 MG/DL (0.55-1.30); POTASSIUM 4.1 MMOL/L (3.5-5.1); SODIUM 139 MMOL/L (136-145)
[2018-05-08 11:41] LABS: ALANINE AMINOTRANSFERASE 34 U/L (12-78); ALBUMIN 4.2 G/DL (3.4-5.0); ALBUMIN/GLOBULIN RATIO 1.2 (1.0-2.7); ALKALINE PHOSPHATASE 74 U/L (46-116); ASPARTATE AMINO TRANSFERASE 23 U/L (15-37); BILIRUBIN,TOTAL 0.6 MG/DL (0.2-1.0); CKMB 1.1 NG/ML (0.0-3.6); CREATINE KINASE 176 U/L (26-308)
[2018-05-08 12:25] VITALS: BP 155/93
[2018-05-08 12:53] VITALS: BP 150/67
--- NOTE | 2018-05-08 12:55 | NUR ---
ED Nurse Note: Pt cleared by health care Provider for discharge. DC instructions/prescription was given and explained to pt and verbalized understanding of teachings. All medical deviecs such as ID band and IV were removed. Pt is AAO x4, ambulatory and left with all personal belongings.
--- NOTE | 2018-05-09 15:22 | Cardiology Report ---
APPROVED REPORT EKG Measurement Heart [id number] Normal sinus rhythm Early repolarization Normal ECG
== END 2018-05-08 12:55 | disposition home or self-care (01) ==
LOC: EMR 10:36
DX: R07.89 Other chest pain (principal)
CPT/HCPCS: 36415; 71045; 80053; 82550; 82553; 83880; 84484; 85025; 93005; 96360; 99284

== ENCOUNTER 2019-12-04 10:30 | Emergency (ER) | payer MEDICAID, OTHER ==
[~2019-12-04] VITALS: Ht 177.8 cm; Wt 88.5 kg
[2019-12-04 10:46] VITALS: BP 150/97
[2019-12-04] MEDS ORDERED: LIDODERM700 M1 TOPIC (10:57)
[2019-12-04] MEDS ORDERED: ROBAXIN-750750 MG PO (10:57)
[2019-12-04] MEDS ORDERED: IBUPROFEN600 M1 ORAL (10:57)
[2019-12-04] MEDS ORDERED: FAMOTIDINE20 MG ORAL (10:57)
[2019-12-04 11:11] VITALS: BP 150/97
--- NOTE | 2019-12-04 12:31 | Emergency Room Report ---
History of Present Illness General Chief Complaint: Pain Source: Patient Present Illness HPI 34-year-old male presents the ED complaining of right hip and leg pain. States he has been having this pain on and off since last year. Got worse over the last week. Pain is throbbing, 8 out of 10 wrapping around the leg to the back. Denies dysuria or scrotal tenderness. Denies leg weakness. No other aggravating relieving factors. Denies any other associated symptoms Allergies: Coded Allergies: No Known Allergies (Unverified , 04/24/18) COVID-19 Screening Contact w/high risk pt: No Experienced COVID-19 symptoms?: No COVID-19 Testing performed FREIGHT RATE CLERK: No Patient History Past Medical History: none Past Surgical History: none Pertinent Family History: none Social History: Denies: smoking, alcohol use, drug use Immunizations: UTD Reviewed Nursing Documentation: PMH: Agreed; PSxH: Agreed Nursing Documentation-PMH Past Medical History: No History, Except For Review of Systems All Other Systems: negative except mentioned in HPI Physical Exam Vital Signs Date Time Temp Pulse Resp B/P (MAP) Pulse Ox O2 Delivery O2 Flow Rate FiO2 12/04/19 10:34 98.2 84 20 150/97 (114) 97 Room Air Sp02 EP Interpretation: reviewed, normal General Appearance: no apparent distress, alert, GCS 15, non-toxic Head: normocephalic, atraumatic Eyes: bilateral eye normal inspection, bilateral eye PERRL ENT: hearing grossly normal, normal pharynx, no angioedema, normal voice Neck: full range of motion, supple/symm/no masses Respiratory: chest non-tender, lungs clear, normal breath sounds, speaking full sentences Cardiovascular #1: regular rate, rhythm, no edema Cardiovascular #2: 2+ carotid (R), 2+ carotid (L), 2+ radial (R), 2+ radial (L), 2+ dorsalis pedis (R), 2+ dorsalis pedis (L) Gastrointestinal: normal bowel sounds, non tender, soft, non-distended, no guarding, no rebound Rectal: deferred Genitourinary: normal inspection, no CVA tenderness, other - no inguinal hernia Musculoskeletal: back normal, normal range of motion, gait/station normal, tender - R hip Neurologic: alert, motor strength/tone normal, oriented x3, sensory intact, responsive, speech normal Psychiatric: judgement/insight normal, memory normal, mood/affect normal, no suicidal/homicidal ideation Reflexes: 3+ bicep (R), 3+ bicep (L), 3+ tricep (R), 3+ tricep (L), 3+ knee (R), 3+ knee (L) Skin: no rash Lymphatic: no adenopathy Medical Decision Making Diagnostic Impression: Primary Impression: Hip strain Qualified Codes: S76.011A - Strain of muscle, fascia and tendon of right hip, initial encounter ER Course Hospital Course 34 yo M with R hip pain no trauma Differential diagnoses include: Fracture, dislocation, sprain, contusion, bursitis Clinical course Patient placed on stretcher. After initial history, physical exam reveals a male in no acute distress. There is some pain with external rotation. No cre pitus. Full range of motion noted. There is no evidence of an inguinal hernia. 5 out of 5 strength in lower extremities. No sensory deficits Discussed findings with patient. Likely hip flexor strain/muscle strain. Has had imaging done previously by his PMD which was unremarkable for similar complaint. I see no reason for further imaging at this point. Will attempt treatment with anti-inflammatories, muscle relaxers, Lidoderm patch. I will provide Ortho referrals. Safe for discharge close outpatient follow-up Diagnosis - hip strain stable and discharged to home with prescription for Motrin, robaxin, lidoderm. Followup with PMD. Return to ED if symptoms recur or worsen Last Vital Signs Date Time Temp Pulse Resp B/P (MAP) Pulse Ox O2 Delivery O2 Flow Rate FiO2 12/04/19 11:11 98.2 82 20 150/97 97 Room Air Status: improved Disposition: HOME, SELF-CARE Condition: Stable Scripts Methocarbamol* (ROBAXIN-750*) 750 Mg Tablet 750 MG PO TID, #21 TAB 0 Refills Prov: Wayne Anderson MD 12/04/19 Lidocaine Patch* (Lidoderm Patch*) 1 Each Adh..patch 1 PATCH TOPIC DAILY, #7 PATCH 0 Refills Patch(es) may remain in place for up to 12 hours in any 24-hour period. Prov: Wayne Anderson MD 12/04/19 Famotidine* (Pepcid 20mg tablet*) 20 Mg Tablet 20 MG ORAL DAILY, #30 TAB 0 Refills Prov: Wayne Anderson MD 12/04/19 Ibuprofen* (MOTRIN*) 600 Mg Tablet 600 MG ORAL Q8H PRN for FOR PAIN, #30 TAB 0 Refills Prov: Wayne Anderson MD 12/04/19 Referrals: NOT CHOSEN [facility]/,REFERRING (PCP) [facility] 24 hour /7 days a week by Appointment Only [address] [place] [id number] Patient Instructions: Muscle Strain, [id number] Wayne Anderson MD Dec 04, 2019 12:31
== END 2019-12-04 11:11 | disposition home or self-care (01) ==
LOC: EMR 11:00
DX: S76.011A Strain of muscle, fascia and tendon of right hip, initial encounter (principal); X58.XXXA Exposure to other specified factors, initial encounter; Y93.9 Activity, unspecified; Y92.9 Unspecified place or not applicable
CPT/HCPCS: 99282